=== PATIENT | female | born 2000 | race Caucasian/White ===

== ENCOUNTER 2025-01-28 17:27 | Emergency (ER) | payer BC, OTHER ==
[2025-01-28] MEDS: Tetracaine HCl/PF 0.5% 4 ML Bottle EYEBOTH ONE (17:40)
== END 2025-01-28 18:50 | disposition home or self-care (01) ==
LOC: MW.ED 17:27
DX: L20.9 Atopic dermatitis, unspecified (principal); Z88.8 Allergy status to other drugs, medicaments and biological substances; Z86.16 Personal history of COVID-19
CPT/HCPCS: 99282; 99284; J3490